=== PATIENT | female | born 1955 | race Caucasian/White ===

== ENCOUNTER 2016-08-01 11:55 | Emergency (ER) | payer OTHER ==
[2016-08-01 11:59] VITALS: BP 168/82; PULSE 88; RESP 20; TEMP 98.4; O2SAT 97
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
[2016-08-01 13:00] LABS: POTASSIUM 3.4 MEQ/L (3.5-5.1)
[2016-08-01 13:03] LABS: BICARBONATE 27.8 MEQ/L (21.0-32.0)
[2016-08-01 13:07] VITALS: BP 154/67; PULSE 88; RESP 16; O2SAT 98
[2016-08-01] MEDS ORDERED: ZANT150T2 PO (13:23)
[2016-08-01] MEDS ORDERED: CETI10CA3 PO (13:23)
[2016-08-01] MEDS ORDERED: TRIA37.53 PO (13:23)
[2016-08-01] MEDS ORDERED: CEFU1TAB20 PO (13:23)
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
[2016-08-01] MEDS ORDERED: IOHEXOL 350 MG/ML 10 ML VIAL (for RAD DIAG) IV ONE (14:31)
[2016-08-01 14:46] VITALS: BP 154/75; PULSE 85; RESP 16; O2SAT 98
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
[2016-08-01 16:05] VITALS: BP 131/78; PULSE 90; RESP 18; O2SAT 98
[2016-08-01] MEDS ORDERED: ULTR50TA5 PO (16:09)
== END 2016-08-01 16:35 | disposition home or self-care (01) ==
LOC: PHEFT 11:55
DX: S20.219A Contusion of unspecified front wall of thorax, initial encounter (principal); S62.102A Fracture of unspecified carpal bone, left wrist, initial encounter for closed fracture; V49.49XA Driver injured in collision with other motor vehicles in traffic accident, initial encounter; Y92.410 Unspecified street and highway as the place of occurrence of the external cause
CPT/HCPCS: 70450; 71260; 72125; 73110; 73130; 80048; 99285; L3908; Q9967